=== PATIENT | male | born 1985 | race Caucasian/White ===

== ENCOUNTER 2017-02-02 18:56 | Emergency (ER) | payer MEDICAID, OTHER ==
[~2017-02-02] VITALS: Ht 175.3 cm; Wt 81.8 kg
[2017-02-02 22:15] VITALS: BP 159/81
== END 2017-02-02 22:33 | disposition home or self-care (01) ==
LOC: EMS 18:57
DX: H60.91 Unspecified otitis externa, right ear (principal); H66.91 Otitis media, unspecified, right ear; K21.9 Gastro-esophageal reflux disease without esophagitis
CPT/HCPCS: 99283

== ENCOUNTER 2020-02-12 20:58 | Emergency (ER) | payer OTHER ==
[~2020-02-12] VITALS: Ht 175.3 cm; Wt 81.8 kg
[2020-02-12] MEDS ORDERED: OMEP20 PO (21:11)
[2020-02-12] MEDS ORDERED: ASPIRIN 81 MG CHEWABLE TABLET PO ONE (23:00)
[2020-02-12 23:13] LABS: BASOPHILS % (AUTO) 0.2 % (0.0-2.0); EOSINOPHILS % (AUTO) 2.6 % (1.0-6.0); HEMATOCRIT 43.6 % (41-53); HEMOGLOBIN 14.2 g/dL (13.5-17.5); LYMPHOCYTES # (AUTO) 2.3 K/uL (1.0-4.8); LYMPHOCYTES % (AUTO) 33.5 % (22.0-44.0); MEAN CORPUSCULAR HEMOGLOBIN 28.6 pg (26.0-34.0); MEAN CORPUSCULAR HGB CONC 32.6 G/dL (31.0-37.0); MEAN CORPUSCULAR VOLUME 88 fL (80-100); MONOCYTES # (AUTO) 0.5 K/uL (0.1-1.0); MONOCYTES % (AUTO) 7.3 % (2.0-9.0); NEUTROPHILS # (AUTO) 3.9 K/uL (1.8-7.7); NEUTROPHILS % (AUTO) 56.4 % (40.0-70.0); PLATELET COUNT (AUTO) 159 K/uL (150-450); RED BLOOD CELL COUNT(AUTO) 4.97 MIL/uL (4.50-5.90); RED CELL DISTRIBUTION WIDTH 12.8 % (11.5-14.5)
[2020-02-12 23:33] LABS: ANION GAP 11 mmol/L (8-16); CALCIUM, TOTAL 9.5 mg/dL (8.8-10.5); CARBON DIOXIDE 28 mmol/L (22-29); CHLORIDE 100 mmol/L (98-107); CREATININE 0.85 mg/dL (0.60-1.30); GLOMERULAR FILTR. RATE CALC > 60 mL/min (>60); GLUCOSE,RANDOM 94 mg/dL (70-110); POTASSIUM 3.3 mmol/L (3.5-5.1); SODIUM SERUM 139 mmol/L (136-145); UREA NITROGEN, BLOOD 22 mg/dL (7-18)
[2020-02-12 23:39] LABS: ALANINE AMINOTRANSFERASE 52 U/L (12-78); ALBUMIN 4.4 g/dL (3.4-5.0); ALKALINE PHOSPHATASE 80 U/L (46-116); ASPARTATE AMINOTRANSFERASE 34 U/L (15-37); BILIRUBIN,TOTAL 0.5 mg/dL (0.1-1.0); TOTAL PROTEIN, SERUM 7.8 g/dL (6.4-8.2)
[2020-02-13] MEDS ORDERED: POTASSIUM CHLORIDE 20 MEQ ER TABLET PO ONE
[2020-02-13 00:38] VITALS: BP 174/90
== END 2020-02-13 00:46 | disposition home or self-care (01) ==
LOC: EMS 20:58
DX: K21.9 Gastro-esophageal reflux disease without esophagitis (principal)
CPT/HCPCS: 93005

== ENCOUNTER 2024-11-22 21:54 | Emergency (ER) | payer OTHER ==
[~2024-11-22] VITALS: Ht 175.3 cm; Wt 72.7 kg
[~2024-11-22 21:54] MED LIST: OMEP-148 PO
[2024-11-22 22:12] VITALS: BP 141/73; PULSE 62; RESP 16; TEMP 98.4; O2SAT 99
[2024-11-22] MEDS ORDERED: CEPH-558 PO (23:11)
[2024-11-22] MEDS: CEPHALEXIN MONOHYDRATE 500 MG CAPSULE PO ONE (23:15)
== END 2024-11-22 23:33 | disposition home or self-care (01) ==
LOC: EMS 21:59
DX: S60.919A Unspecified superficial injury of unspecified wrist, initial encounter (principal); K21.9 Gastro-esophageal reflux disease without esophagitis; Z79.899 Other long term (current) drug therapy; X58.XXXA Exposure to other specified factors, initial encounter; Y93.89 Activity, other specified; Y92.89 Other specified places as the place of occurrence of the external cause; Y99.8 Other external cause status
CPT/HCPCS: 99283